=== PATIENT | female | born 1985 | race American Indian/Alaskan Native ===

== ENCOUNTER 2021-02-21 05:53 | Day surgery (SDC) | payer MEDICAID, OTHER ==
[2021-02-21 09:31] VITALS: BP 102/55
== END 2021-02-21 10:20 | disposition home or self-care (01) ==
LOC: OR 05:53
PROVIDERS: ATTEND Obstetrics & Gynecology
DX: O02.1 Missed abortion (principal); G43.909 Migraine, unspecified, not intractable, without status migrainosus; Z87.440 Personal history of urinary (tract) infections; Z79.899 Other long term (current) drug therapy; Z72.89 Other problems related to lifestyle; Z98.890 Other specified postprocedural states
CPT/HCPCS: 59821; 88305; J1100; J1885; J2210; J2370; J2405; J2704; J3010